=== PATIENT | male | born 1945 | race Caucasian/White ===

== ENCOUNTER → 2024-05-19 09:23 | Outpatient (BNVA) | payer OTHER, SELFPAY | PROVIDERS: PCP Family Medicine; Referring Provider Family Medicine; Visit Provider Psychiatry & Neurology Neurology | DX: G40.109 Localization-related (focal) (partial) symptomatic epilepsy and epileptic syndromes with simple partial seizures, not intractable, without status epilepticus (principal); I99.8 Other disorder of circulatory system; E55.9 Vitamin D deficiency, unspecified; R56.9 Unspecified convulsions; G45.9 Transient cerebral ischemic attack, unspecified | CPT/HCPCS: 81241; 82306; 82607; 82746; 83090; 83735; 83921; 84207; 84425; 84439; 84443; 84481; 84591; 85210; 85613; 85730; 86146; 86147; 86376 ==

== ENCOUNTER 2024-06-29 12:05 | Outpatient (CLI) | payer OTHER, SELFPAY ==
--- NOTE | 2024-06-29 12:15 | MR_ITS ---
WS: [id number] MRI HEAD WITH CONTRAST TECHNIQUE: Sagittal T1, T2 axial, T2 axial FLAIR, axial susceptibility weighted imaging, axial diffus ion weighted images, and coronal T2 images were obtained. Pre and post-T1 axial and post T1 coronal i mages. ADC and FSPGR images. CLINICAL INFORMATION: G40.109 - Localization-related (focal) (partial) symptoma... COMPARISON: None. FINDINGS: No evidence of restricted diffusion to suggest acute ischemia. Ventricular system and basil ar cisterns are patent. Mild small vessel changes. Moderate parenchymal volume loss. Normal posterior fossa. Normal vascular flow voids at the skull base. No extra-axial fluid collections. No evidence o f mass or mass effect. Paranasal sinuses and mastoid air cells are well aerated. Chronic punctate foc us of hemosiderin in the RIGHT cerebellum. No other acute findings. Normal visualized dural venous sinuses. Enhancement RIGHT greater than LEFT optic nerves can be seen with optic neuritis. Recommend clinical correlation for visual symptoms. No significant optic nerve e kerry. Normal optic chiasm and pituitary infundibulum. Mild symmetric atrophy temporal lobes and hippo campal formations. No abnormal intracranial enhancement. Normal dural venous sinuses. MR/MR head wo/w con [id number] IMPRESSION: 1. No evidence of restricted diffusion to suggest acute ischemia. 2. Mild small vessel changes with moderate parenchymal volume loss. 3. RIGHT greater than LEFT optic nerve enhancement can be seen with optic neur itis. Recommend clinical correlation. No optic nerve edema. 4. Chronic focus of hemosiderin in the RIGHT cerebellum. 5. No other acute findings.
[2024-06-29] MEDS: gadobenate dimeglumine 20 mL vial IV (12:30)
== END 2024-06-29 12:06 | disposition home or self-care (01) ==
LOC: RAD 12:05
PROVIDERS: PCP Family Medicine; Visit Provider Psychiatry & Neurology Neurology
DX: G40.109 Localization-related (focal) (partial) symptomatic epilepsy and epileptic syndromes with simple partial seizures, not intractable, without status epilepticus (principal); H46.9 Unspecified optic neuritis; R94.02 Abnormal brain scan
CPT/HCPCS: 70553